=== PATIENT | female | born 1950 | race Caucasian/White ===

== ENCOUNTER 2023-12-09 05:38 | Observation (INO) | payer MEDICARE, BC ==
[2023-12-04 11:48] LABS: BASOPHILS # (AUTO) 0.1 X10'3 (0-0.2); BASOPHILS % (AUTO) 0.9 % (0-1); EOSINOPHILS # (AUTO) 0.1 X10'3 (0-0.9); EOSINOPHILS % (AUTO) 2.2 % (0-6); LYMPHOCYTES # (AUTO) 1.8 X10'3 (1.1-4.8); LYMPHOCYTES % (AUTO) 26.6 % (21-51); MEAN CORPUSCULAR HEMOGLOBIN 32.2 PG (27.0-31.0); MEAN CORPUSCULAR HGB CONC 33.7 g/dL (33.0-36.5); MEAN CORPUSCULAR VOLUME 95.5 FL (78-98); MONOCYTES # (AUTO) 0.5 X10'3 (0-0.9); MONOCYTES % (AUTO) 7.7 % (2-12); NEUTROPHILS # (AUTO) 4.2 X10'3 (1.8-7.7); NEUTROPHILS % (AUTO) 62.6 % (42-75); PRE OP HEMATOCRIT 40.3 % (35.0-45.0); PRE OP HEMOGLOBIN 13.6 g/dL (12.0-16.0); PRE OP PLATELET COUNT 221 X10'3 (140-440); PRE OP WHITE BLOOD COUNT 6.7 10'3 (4.8-10.8); RED BLOOD COUNT 4.22 X10'6 (4.20-5.60); RED CELL DISTRIBUTION WIDTH 14.2 % (11.5-14.5)
[2023-12-04 12:09] LABS: ALBUMIN 4.1 G/DL (3.4-5.0); ALBUMIN/GLOBULIN RATIO 1.2 (1.1-1.5); ALKALINE PHOSPHATASE 92 IU/L (46-116); BLOOD UREA NITROGEN 17 MG/DL (7-18); CALCIUM 8.9 MG/DL (8.5-10.1); CHLORIDE 104 MMOL/L (99-107); CREATININE 0.74 MG/DL (0.40-0.90); PRE OP ALT 34 U/L (30-65); PRE OP ANION GAP 11 (8-16); PRE OP AST 24 U/L (10-37); PRE OP BILIRUB, TOTAL 0.9 MG/DL (0.0-1.0); PRE OP GLUCOSE 98 MG/DL (70-104); PRE OP POTASSIUM 3.6 MMOL/L (3.4-5.1); PRE OP SODIUM 141 MMOL/L (135-145); TOTAL PROTEIN 7.4 G/DL (6.4-8.2); eGFR 77 ML/MIN
[~2023-12-09] VITALS: Ht 157.5 cm; Wt 93.0 kg
[2023-12-09] VITALS (36 sets, daily range): BP systolic 99–186; BP diastolic 51–114; PULSE 55–89; RESP 12–22; TEMP 97.8–99.4; O2SAT 91–100
[2023-12-09] MEDS: potassium CL 20mEq in D5-1/2NS 1,000 ML IV SCH (01:00)
[2023-12-09] MEDS: ringers solution, lacted 1,000 ML IV SCH ×2 (05:00→23:45)
[2023-12-09] MEDS: famotidine 20mg tablet PO ONE (05:30)
[~2023-12-09 05:38] MED LIST: HYDR-3972 PO; HYDR12.55 PO; IRBE150T34 PO; LEVO150T8 PO; PANT40TA54 PO; PRAV40TA3 PO; [UNRECOGNIZED DRUG - OTHER]
[2023-12-09] MEDS: cefazolin 2gm/D5W 100mL 100 ML IV ONE (06:01)
[2023-12-09] MEDS ORDERED: LIDOcaine 2% Viscous 15ml cup ONE (07:27)
[2023-12-09] MEDS ORDERED: fentaNYL/PF 50MCG/1 ML 2ML syringe ONE (07:31)
[2023-12-09] MEDS ORDERED: MIDAZolam 1 MG/ML 5ML VIAL ONE (07:31)
[2023-12-09] MEDS ORDERED: sevoflurane 250ml liquid IH ONE (09:17)
[2023-12-09] MEDS ORDERED: dexamethasone sod phosphate 10mg/ml inj ONE (09:17)
[2023-12-09] MEDS ORDERED: midazolam 1 mg/ML 2ml injection ONE (09:20)
[2023-12-09] MEDS ORDERED: fentaNYL /PF 50mcg/ml 5ml ampule ONE (09:20)
[2023-12-09] MEDS ORDERED: ondansetron/PF 4mg/2ml inj ONE (09:32)
[2023-12-09] MEDS ORDERED: neostigmine methylsulfate 1 MG/ML 10ml vial ONE (09:32)
[2023-12-09] MEDS ORDERED: propofol inj 20 ML IV ONE (09:32)
[2023-12-09] MEDS ORDERED: LIDOcaine 2% (20mg/ml) 5ml vial ONE (09:32)
[2023-12-09] MEDS ORDERED: rocuronium 10mg/ml inj IV ONE ×2 (09:32→11:08)
[2023-12-09] MEDS ORDERED: acetaminophen 1,000mg/100ml IV 100 ML IV ONE (09:32)
[2023-12-09] MEDS ORDERED: glycopyrrolate 0.2mg/ml inj ONE (09:33)
[2023-12-09] MEDS ORDERED: ePHEDrine 50MG/ML INJ. ONE (10:04)
[2023-12-09] MEDS ORDERED: ondansetron/PF 4mg/2ml inj IV PRN ×2 (10:15→12:35)
[2023-12-09] MEDS ORDERED: fentaNYL/PF 50MCG/1 ML 2ML syringe IV PRN (10:15)
[2023-12-09] MEDS ORDERED: labetalol 20mg/4ml (5mg/ml) syringe IV PRN (10:15)
[2023-12-09] MEDS ORDERED: morphine 4 MG/ML inj SYRINge IV PRN (10:15)
[2023-12-09] MEDS ORDERED: hydrALAZINE 20mg/ml inj. IV PRN (10:15)
[2023-12-09] MEDS: LIDOcaine 1% 30ml preserv. free vial ONE (10:18)
[2023-12-09] MEDS: BUPIVAcaine 2.5mg/ml inj 50ml vial (contains preservative) ONE (10:19)
[2023-12-09] MEDS ORDERED: labetalol 20mg/4ml (5mg/ml) syringe IV ONE (12:09)
[2023-12-09] MEDS ORDERED: naloxone 0.4 mg/ml inj IV PRN (12:35)
[2023-12-09] MEDS: morphine 2 MG/ML inj. syringe IV PRN (12:36)
[2023-12-09] MEDS: HYDROmorph/NS 0.2 mg/ml PCA 100 ML IV SCH (13:22)
[2023-12-09] MEDS: fentaNYL/PF 50MCG/1 ML 2ML syringe IV PRN (16:53)
[2023-12-09] MEDS ORDERED: PCA WASTE DOCUMENTATION 1 MG ML MC SCH (20:05)
[2023-12-09] MEDS: temazepam 15mg capsule PO PRN (21:04)
[2023-12-09] MEDS: docusate sod 100mg capsule PO SCH (21:14)
[2023-12-09] MEDS: normal saline 1000ml 1,000 ML IV SCH (23:46)
[2023-12-10 02:00] VITALS: BP 136/58; PULSE 80; RESP 16; TEMP 97.9; O2SAT 93
[2023-12-10 06:00] VITALS: BP 136/71; PULSE 72; RESP 16; TEMP 97.7; O2SAT 95
[2023-12-10] MEDS: oxyCODONE/APAP 5-325mg tablet PO ONE (07:42)
[2023-12-10] MEDS: levoTHYROXINE 75mcg tablet PO SCH (07:44)
[2023-12-10] MEDS: losartan 50mg tablet PO SCH (07:45)
[2023-12-10] MEDS: atorvastatin 10mg tablet PO SCH (07:45)
[2023-12-10] MEDS: enoxaparin 40mg/0.4ml syringe SQ SCH (07:48)
[2023-12-10 07:58] VITALS: RESP 16; O2SAT 95
[2023-12-10] MEDS: HYDROchlorothiazide 12.5mg capsule PO SCH (08:16)
[2023-12-10 10:00] VITALS: BP 161/88; PULSE 87; RESP 16; TEMP 98.8; O2SAT 96
[2023-12-10] MEDS: oxyCODONE/APAP 5-325mg tablet PO PRN (11:26)
[2023-12-10] MEDS ORDERED: PER5325T PO (11:36)
== END 2023-12-10 15:15 | disposition home or self-care (01) ==
LOC: PAS 05:38 → PACU 12:35 → SUR 3N 19:45
PROVIDERS: ADMIT Surgery; ATTEND Surgery
DX: K44.9 Diaphragmatic hernia without obstruction or gangrene (principal); K31.84 Gastroparesis; K56.2 Volvulus; I10 Essential (primary) hypertension; E66.9 Obesity, unspecified; E03.9 Hypothyroidism, unspecified; Z79.899 Other long term (current) drug therapy
CPT/HCPCS: 36415; 43235; 43282; 71045; 80053; 82948; 85025; 93005; 96365; 96366; 96372; 96375; C1781; G0378; J0131; J0690; J1100; J1170; J1650; J2250; J2270; J2405; J2704; J2710; J3010; J3480; J3490; J7030; J7120; 99152; A4615; A4618; A4620; A5200